=== PATIENT | female | born 1995 | race American Indian/Alaskan Native ===

== ENCOUNTER 2017-04-05 10:23 | Emergency (ER) | payer BC, OTHER ==
[2017-04-05 11:34] VITALS: BP 106/47
[2017-04-05 12:03] LABS: Bacteria,Urine 2+ /HPF (Negative); Bilirubin,Urine NEG (Negative); Blood,Urine NEG (Negative); Color,Urine Yellow (Yellow); Mucus,Urine FEW /HPF; Nitrite,Urine NEG (Negative); Protein,Urine <15 mg/dL mg/dL (Negative)
[2017-04-05 12:41] LABS: Amphetamine Screen,Urine PRESUMPTIVE NEGATIVE; Cannabinoid Screen,Urine PRESUMPTIVE NEGATIVE; Cocaine Screen,Urine PRESUMPTIVE NEGATIVE; Methadone Screen,Urine PRESUMPTIVE NEGATIVE; Opiate Screen,Urine PRESUMPTIVE NEGATIVE
[2017-04-05 13:02] LABS: Benzodiazepines Screen,Urine PRESUMPTIVE POSITIVE
--- NOTE | 2017-04-05 13:25 | Emergency Department Report ---
HPI - General Chief Complaint: Psych Time Seen by Provider: 04/05/17 12:35 - HPI HPI: Patient was brought to ED via ambulance with the complaint of feeling down, needing someone to talk to since her mother . Patient denies any suicidal ideation, denies history of depression, does not take any medications. She was not doughnut called [address]. She said that someone had her house likely called ambulance because she said she missed her mother. ED Past Medical Hx - Social History Smoking Status: Current Some Day Smoker Substance Use Type: None - Medications Home Medications: Home Medications Medication Instructions Recorded Confirmed Last Taken Type HYDROcodone/APAP 5-325 [[place] 1 each PO Q6HR PRN #14 tablet 09/08/14 02/12/15 Unknown Rx 5-325 mg TAB] Penicillin Vk [Veetids TAB] 500 mg PO QID #40 tablet 09/08/14 02/12/15 Unknown Rx Ibuprofen [Motrin] 600 mg PO Q8H PRN #20 tablet 02/12/15 Unknown Rx ED Review of Systems ROS: Stated complaint: SUICIDAL / MH Other details as noted in HPI Comment: All other systems reviewed and negative Neurological: denies: as per HPI Psychiatric: anxiety, depression. denies: auditory hallucinations, visual hallucinations, homicidal thoughts, suicidal thoughts Physical Exam - Physical Exam Vital Signs: Vital Signs 04/05/17 04/05/17 11:10 11:29 Temperature 98.6 F Pulse Rate 76 Respiratory 14 14 Rate Blood Pressure 106/47 O2 Sat by Pulse 100 Oximetry Physical Exam: Gen. alert and oriented 3 in no distress Head atraumatic normocephalic Eyes PERR LA EOMI Chest regular rate and rhythm normal S1-S2 lungs clear bilaterally Abdomen soft nondistended Back no point tenderness paravertebral tenderness Neuro no focal deficit. Psych normal mood. ED Course Vital Signs 04/05/17 04/05/17 11:10 11:29 Temperature 98.6 F Pulse Rate 76 Respiratory 14 14 Rate Blood Pressure 106/47 O2 Sat by Pulse 100 Oximetry Critical care attestation.: If time is entered above; I have spent that time in minutes in the direct care of this critically ill patient, excluding procedure time. ED Disposition Clinical Impression: Depression Disposition: ELOPED Is pt being admited?: No Does the pt Need Aspirin: No Condition: Stable Referrals: PRIMARY CARE, [Primary Care Provider] - 3-5 Days
== END 2017-04-05 15:51 | disposition left against medical advice (07) ==
LOC: ED 10:23
DX: F32.9 Major depressive disorder, single episode, unspecified (principal); F17.200 Nicotine dependence, unspecified, uncomplicated
CPT/HCPCS: 80307; 81001; 99283

== ENCOUNTER 2021-08-23 14:58 | Emergency (ER) | payer MEDICAID | END 2021-08-23 20:25 | disposition left against medical advice (07) | LOC: ED 14:58 | DX: R06.02 Shortness of breath (principal); Z53.21 Procedure and treatment not carried out due to patient leaving prior to being seen by health care provider ==

== ENCOUNTER 2021-09-10 14:14 | Emergency (ER) | payer MEDICAID, OTHER ==
[2021-09-10] MEDS ORDERED: diphenhydrAMINE 50 MG/ML VIAL IV ONE (15:03)
[2021-09-10] MEDS ORDERED: METOCLOPRAMIDE 10 MG/2 ML INJ IV ONE (15:03)
--- NOTE | 2021-09-10 15:04 | Emergency Department Report ---
ED General Adult HPI - General Chief complaint: Pain General Stated complaint: WITHDRAWL/DETOX/ANXIETY Time Seen by Provider: 09/10/21 14:59 Source: patient, EMS ( EMS documentation not available at time of chart dictation ), RN notes reviewed, old records reviewed Mode of arrival: Stretcher Limitations: No Limitations - History of Present Illness Initial comments: The patient was evaluated in the emergency department for symptoms described in the history of present illness. He/she was evaluated in the context of the global COVID-19 pandemic, which necessitated consideration that the patient might be at risk for infection with the virus that causes COVID-19. Institutional protocols and algorithms that pertain to the evaluation of patients at risk for COVID-19 are in a state of rapid change based on information released by regulatory bodies including the CDC and federal and state organizations. These policies and algorithms were followed during the patient's care in the emergency department. Please note that these policies, procedures and recommendations changed on a rapid basis. This is a 25-year-old female who presents to the ER today with a complaint of heroin withdrawal. She typically snorts on a daily basis, and quit cold turkey yesterday. She endorses diffuse cramping, with nausea and vomiting. She is not homicidal or suicidal. She states that she is not . She is not experiencing hallucinations. She has not attempted Suboxone therapy in the past. -: Gradual Consistency: constant Improves with: none Worsens with: eating - Related Data Previous Rx's Medication Instructions Recorded Last Taken Type Penicillin Vk [Veetids TAB] 500 mg PO QID #40 tablet 09/08/14 Unknown Rx Naloxone HCl [Narcan Nasal Mildred] 4 mg NS PRN PRN #1 spray 09/10/21 Unknown Rx Ondansetron [Zofran Odt] 4 mg PO Q8HR PRN #20 tab.rapdis 09/10/21 Unknown Rx Promethazine [Phenergan SUPPOS] 50 mg OR Q6H PRN #20 supp 09/10/21 Unknown Rx cloNIDine [Catapres] 0.1 mg PO BID PRN #30 tablet 09/10/21 Unknown Rx Allergies Allergy/AdvReac Type Severity Reaction Status Date / Time acetaminophen [From Percocet] Allergy Itching Verified 02/12/15 02:26 oxycodone HCl [From Percocet] Allergy Itching Verified 02/12/15 02:26 ED Review of Systems ROS: Stated complaint: WITHDRAWL/DETOX/ANXIETY Other details as noted in HPI Constitutional: malaise, weakness. denies: fever ENT: denies: congestion Respiratory: denies: cough Cardiovascular: denies: chest pain Gastrointestinal: abdominal pain, nausea, vomiting, diarrhea Musculoskeletal: arthralgia, myalgia Neurological: weakness Psychiatric: anxiety. denies: homicidal thoughts, suicidal thoughts ED Past Medical Hx - Past Medical History Previous Medical History?: No - Surgical History Past Surgical History?: No - Social History Smoking Status: Current Some Day Smoker Substance Use Type: None - Medications Home Medications: Home Medications Medication Instructions Recorded Confirmed Last Taken Type Penicillin Vk [Veetids TAB] 500 mg PO QID #40 tablet 09/08/14 02/12/15 Unknown Rx Naloxone HCl [Narcan Nasal Mildred] 4 mg NS PRN PRN #1 spray 09/10/21 Unknown Rx Ondansetron [Zofran Odt] 4 mg PO Q8HR PRN #20 tab.rapdis 09/10/21 Unknown Rx Promethazine [Phenergan SUPPOS] 50 mg OR Q6H PRN #20 supp 09/10/21 Unknown Rx cloNIDine [Catapres] 0.1 mg PO BID PRN #30 tablet 09/10/21 Unknown Rx ED Physical Exam - General Limitations: No Limitations General appearance: alert, anxious, in distress, obese - Head Head exam: Present: atraumatic, normocephalic - Eye Eye exam: Present: normal appearance, EOMI. Absent: nystagmus - ENT ENT exam: Present: normal exam, normal orophraynx, mucous membranes moist, normal external ear exam - Neck Neck exam: Present: normal inspection, full ROM. Absent: tenderness, meningismus - Respiratory Respiratory exam: Present: normal lung sounds bilaterally. Absent: respiratory distress, wheezes, rales, rhonchi, stridor, decreased breath sounds - Cardiovascular Cardiovascular Exam: Present: regular rate, normal rhythm, normal heart sounds. Absent: bradycardia, tachycardia, irregular rhythm, systolic murmur, diastolic murmur, rubs, gallop - GI/Abdominal GI/Abdominal exam: Present: soft. Absent: distended, tenderness, guarding, rebound, rigid, pulsatile mass - Extremities Exam Extremities exam: Present: normal inspection, full ROM, normal capillary refill, other (2+ pulses noted in the bilateral upper and lower extremities. There is no palpable cord. negative Homans sign. Muscular compartments are soft. The pelvis is stable.). Absent: pedal edema, calf tenderness - Back Exam Back exam: Present: normal inspection, full ROM. Absent: tenderness, CVA tenderness (R), CVA tenderness (L), paraspinal tenderness, vertebral tenderness - Neurological Exam Neurological exam: Present: alert, oriented X3, other (No facial droop. Tongue midline. Extraocular movements intact bilaterally. Facial sensation intact to light touch in V1, V2, V3 distribution bilaterally. 5 and a 5 strength in 4 e xtremities. Sensation intact to light touch in 4 extremities.). Absent: motor sensory deficit - Psychiatric Psychiatric exam: Present: anxious. Absent: homicidal ideation, suicidal ideation - Skin Skin exam: Present: warm, dry, intact, normal color. Absent: rash ED Course Vital Signs 09/10/21 14:26 Temperature 98.7 F Pulse Rate 90 Respiratory 20 Rate Blood Pressure 142/88 [Left] O2 Sat by Pulse 100 Oximetry - Reevaluation(s) Reevaluation #1: 09/10/21 15:56 Differential diagnosis, including but not limited to: Opioid withdrawal, nausea and vomiting, dehydration Assessment and plan: 25-year-old female who is clinically sober, who does not meet criteria for 1013 hold or involuntary confinement, with no abdominal tenderness, rebound or guarding, presenting with opioid withdrawal. Place patient on color television console monitor, treat symptoms. Obtain appropriate laboratory studies. If patient able to have cessation of vomiting, and tolerate oral liquids, discharged with as needed clonidine, Zofran, Phenergan, Narcan, and outpatient detox resources and follow-up. Reassess Reevaluation #2: 09/10/21 16:21 Patient is now in no acute distress, and resting comfortably on her stretcher, without active vomiting Reevaluation #3: 09/10/21 16:52 Patient vomiting again. Zofran ordered 09/10/21 17:10 Laboratory studies reviewed and appreciated. Oral Zofran once nausea and vomiting resolved. Patient may correct hypomagnesemia with diet lifestyle modifications. 09/10/21 17:44 Patient noted to be pouring herself Gatorade, and drinking it. No active vomiting at this time. She also received Zofran IV. Discussed all findings with patient, and discussed diet and lifestyle modifications. 09/10/21 19:13 Patient now endorsed to nursing team that she was suicidal. She does not have a plan. Suspect that the patient is malingering for the purposes of secondary gain. Have requested mental health evaluation. 09/10/21 19:21 As expected, the mental health team also advises that this patient does not meet criteria for 1013 hold at this time. The patient endorsed to the mental health conservation assistant that she is homeless and very concerned about her homelessness. Placing this patient on a 1013 hold will reinforce maladaptive behaviors and coping mechanisms, such as presenting to the department for the purposes of food and assisted. Patient will be given a list of outpatient resources to follow-up with. 09/10/21 19:36 Appreciate that patient is mildly tachycardic. This is likely secondary to withdrawal symptoms, as well as anxiety, and homelessness. ED Medical Decision Making - Lab Data Result diagrams: 09/10/21 15:23 09/10/21 15:23 Vital Signs 09/10/21 14:26 Temperature 98.7 F Pulse Rate 90 Respiratory 20 Rate Blood Pressure 142/88 [Left] O2 Sat by Pulse 100 Oximetry Lab Results 09/10/21 09/10/21 09/10/21 Range/Units 15:23 15:23 15:23 Hgb 15.0 H (10.1-14.3) gm/dl Hct 47.2 H (30.3-42.9) % Sodium 142 (137-145) mmol/L Potassium 3.9 (3.6-5.0) mmol/L Chloride 99.7 (98-107) mmol/L Carbon Dioxide 25 (22-30) mmol/L Anion Gap 21 mmol/L BUN 9 (7-17) mg/dL Creatinine 0.9 (0.6-1.2) mg/dL Estimated GFR > 60 ml/min BUN/Creatinine Ratio 10 % Glucose 111 H (65-100) mg/dL Calcium 10.6 H (8.4-10.2) mg/dL Magnesium 1.50 L (1.7-2.3) mg/dL Total Bilirubin 0.30 (0.1-1.2) mg/dL AST 22 (5-40) units/L ALT 15 (7-56) units/L Alkaline Phosphatase 118 (35-129) units/L Total Creatine Kinase 178 H (30-135) units/L Total Protein 9.0 H (6.3-8.2) g/dL Albumin 4.6 (3.9-5) g/dL Albumin/Globulin Ratio 1.0 % HCG, Quant < 2 (0-4) mIU/mL Salicylates (2.8-20.0) mg/dL Acetaminophen (10.0-30.0) ug/mL 09/10/21 09/10/21 Range/Units 15:23 15:23 Hgb (10.1-14.3) gm/dl Hct (30.3-42.9) % Sodium (137-145) mmol/L Potassium (3.6-5.0) mmol/L Chloride (98-107) mmol/L Carbon Dioxide (22-30) mmol/L Anion Gap mmol/L BUN (7-17) mg/dL Creatinine (0.6-1.2) mg/dL Estimated GFR ml/min BUN/Creatinine Ratio % Glucose (65-100) mg/dL Calcium (8.4-10.2) mg/dL Magnesium (1.7-2.3) mg/dL Total Bilirubin (0.1-1.2) mg/dL AST (5-40) units/L ALT (7-56) units/L Alkaline Phosphatase (35-129) units/L Total Creatine Kinase (30-135) units/L Total Protein (6.3-8.2) g/dL Albumin (3.9-5) g/dL Albumin/Globulin Ratio % HCG, Quant (0-4) mIU/mL Salicylates < 0.3 L (2.8-20.0) mg/dL Acetaminophen 5.0 L (10.0-30.0) ug/mL Critical care attestation.: If time is entered above; I have spent that time in minutes in the direct care of this critically ill patient, excluding procedure time. ED Disposition Clinical Impression: Opioid withdrawal, Nausea and vomiting, Hypomagnesemia, Homelessness Disposition: 01 HOME / SELF CARE / HOMELESS Is pt being admited?: No Does the pt Need Aspirin: No Condition: Good Instructions: Opioid Withdrawal Treatment Additional Instructions: Patient is encouraged to take a multivitamin [id number] on a daily basis. Patient may consume foods that are elevated and magnesium, potassium and calcium, such as banana, avocado, or potato Please follow-up with an outpatient mental health specialist within the next week. Avoid consumption of alcohol, tobacco, smoke products and recreational drugs. Patient may take the Zofran medication as needed for nausea and vomiting/opioid withdrawal, in addition to clonidine prescription, as needed for sensation of opioid withdrawal. May take the Phenergan suppository as needed for intractable nausea and vomiting not relieved by clonidine and/or Zofran. Use the Narcan medication as needed for opioid overdose symptoms. Please return to the emergency room right away with new pain, worsened pain, migration of pain, projectile vomiting, change in mental status, confusion, inability tolerate liquid feeds, new, worsened or different symptoms not present on the initial emergency room evaluation professional and Agency Contacts To help Resolve Crises (04/09) [place] Crisis Line: Suicide Prevention Line: Crisis Text Line: Text ``START to 912804 Emergency: 911 Outpatient COMMUNITY Behavioral Health Resources: [facility]: [facility] [address] [place], [place] [address] [facility] [address] [place] [address] Sunday thru Sunday - 8am - 5pm Call to schedule an assessment for mental health and substance abuse programs [facility] Address: [address] [place] [address] Sunday thru Sunday- 7am-2pm [facility] Address: [address] [place] [address] Sunday thru Sunday: 8:30AM-5PM In case of an emergency, please contact the following numbers: [place] Crisis and Access Line: Number: Crisis Text Line: (Text START) Number: 850623 Suicide Prevention Line: Number: Emergency Number: 911 SUBSTANCE ABUSE PROGRAMS: [facility]: Location: [place], [place] [facility] Address: [address] [place] [address] [facility]: Address: [address] [place] [address] [facility]: Address: [address] [place] [address] [facility]: Address: [address] [place] [address] [facility] Address: [address] [place] [address]. Please contact above numbers to attempt placement into free based program. Medicaid Programs: [facility]: Address: [address] [place] [address] [facility]: Address: [address] [place] [address] HOMELESS RESOURCES: [facility] NEED HELP? If you are in need of help or know someone who does, please contact us at [email or web address] call , or come to our offices at [address] [place] [address], Sunday-Sunday beginning 9:30 AM-1:30 PM -Support services help people with getting identification and legal documents -Homeless verification letter -Facesheet (if needed) [facility]: Roberta Melgar, [facility] Address: [address] [place] [address] How do I join the [facility] housing program? Our housing programs are offered based on availability. If you are looking to participate in our housing program, simply call [phone] to find out if we have available space. Since we do receive many calls, please allow up to 48 hours for one of our housing specialists to return your call. If we do not have vacancies, we suggest callingthe [facility] hotline at 211 for additional housing options. [facility] Address: [address], [place] [id number] Prescriptions: cloNIDine [Catapres] 0.1 mg PO BID PRN #30 tablet PRN Reason: Nausea Naloxone HCl [Narcan Nasal Mildred] 4 mg NS PRN PRN #1 spray PRN Reason: Opioid Reversal Promethazine [Phenergan SUPPOS] 50 mg OR Q6H PRN #20 supp PRN Reason: Nausea Ondansetron [Zofran Odt] 4 mg PO Q8HR PRN #20 tab.rapdis PRN Reason: Nausea Referrals: [facility] [Provider Group] - 3-5 Days [facility] [Outside] - 3-5 Days [facility] [Outside] - 3-5 Days Forms: Work/School Release Form(ED)
[2021-09-10 16:28] LABS: Hematocrit 47.2 % (30.3-42.9)
[2021-09-10] MEDS ORDERED: ONDANSETRON 4 MG/2 ML INJ IV ONE (16:51)
[2021-09-10] MEDS ORDERED: LACTATED RINGERS 1,000 ML IV ONE (16:52)
[2021-09-10 17:05] LABS: Alanine Aminotransferase 15 units/L (7-56); Albumin 4.6 g/dL (3.9-5); BUN/Creatinine Ratio 10; Blood Urea Nitrogen 9 mg/dL (7-17); Calcium 10.6 mg/dL (8.4-10.2); Hemolysis Index 5
[2021-09-10] MEDS ORDERED: MAGNESIUM OXIDE 400 MG TAB PO STA (17:09)
[2021-09-10 21:59] VITALS: BP 109/78
== END 2021-09-10 20:00 | disposition home or self-care (01) ==
LOC: ED 14:14
DX: F11.23 Opioid dependence with withdrawal (principal); R11.2 Nausea with vomiting, unspecified; E83.42 Hypomagnesemia; Z59.00 Homelessness unspecified; F17.200 Nicotine dependence, unspecified, uncomplicated; Z88.8 Allergy status to other drugs, medicaments and biological substances
CPT/HCPCS: 36415; 80053; 82550; 83735; 84702; 85014; 85018; 96361; 96374; 96375; 99284; J1200; J2405; J2765; J7120; 80320; G0480